=== PATIENT | male | born 2000 | race Two or more races ===

== ENCOUNTER 2022-05-25 17:52 | Emergency (ER) | payer OTHER, SELFPAY ==
[2022-05-25] VITALS (22 sets, daily range): BP systolic 101–154; BP diastolic 55–83; PULSE 99–132; RESP 10–22; TEMP 37; O2SAT 98–100
--- NOTE | 2022-05-25 18:31 | ECG_ITS ---
Measurements Intervals [place] Rate: 118 P: 70 CA: 172 QRS: 59 QRSD: 93 T: 67 QT: 430 QTc: 603 Interpretive Statements SINUS TACHYCARDIA POSSIBLE LEFT ATRIAL ENLARGEMENT INCOMPLETE RIGHT BUNDLE BRANCH BLOCK NONSPECIFIC ST & T-WAVE ABNORMALITY- ANTEROLAT/INF LEADS ABNORMAL ECG NO PREVIOUS ECG AVAILABLE FOR COMPARISON Electronically Signed On 05-25-2022 19:26:17 CDT by Chandler Daigle D.O.
--- NOTE | 2022-05-25 18:34 | ED.GENADULT ---
HPI - General Adult General Chief complaint: Unspecified <MICHAEL Byrd Last Filed: 05/25/22 22:03> Stated complaint: edible ingestion <MICHAEL Byrd Last Filed: 05/25/22 22:03> Time Seen by Provider: 05/25/22 18:32 <Gaviota Tapia PA-C - Last Filed: 05/25/22 22:03> Source: patient <MICHAEL Byrd Last Filed: 05/25/22 22:03> Mode of arrival: EMS <MICHAEL Byrd Last Filed: 05/25/22 22:03> Limitations: no limitations <MICHAEL Byrd Last Filed: 05/25/22 22:03> History of Present Illness HPI narrative: This is a 21 year old male that presents to the ER after taking an edible. Reports he took a delta 8 edible. Since he has been hearing a beeping noise and feels like he is in a time loop. Reports feeling anxious. Denies chest pain or shortness of breath. <MICHAEL Byrd Last Filed: 05/25/22 22:03> Related Data Home medications: Home Medications Medication Instructions Recorded Confirmed finasteride 1 mg tablet 1 mg PO DAILY 05/25/22 05/25/22 <MICHAEL Byrd Last Filed: 05/25/22 22:03> Allergies/adverse reactions: Allergies Allergy/AdvReac Type Severity Reaction Status Date / Time No Known Allergies Allergy Verified 05/25/22 18:01 <Gaviota Tapia PA-C - Last Filed: 05/25/22 22:03> Review of Systems Review of Systems: CONSTITUTIONAL: Denies fever EYES: Denies visual changes CARDIOVASCULAR: Denies chest pain RESPIRATORY: Denies dyspnea. GASTROINTESTINAL: Denies vomiting NEUROLOGIC: Denies numbness, or weakness. PSYCHIATRIC: Reports anxiety <MICHAEL Byrd Last Filed: 05/25/22 22:03> All systems reviewed & are unremarkable except as noted in HPI and below <MICHAEL Byrd Last Filed: 05/25/22 22:03> PMFSH Past Medical History Medical History: Medical History (Updated 05/26/22 @ 00:00 by Sienna Mascorro) No active medical problems <Gaviota Tapia PA-C - Last Filed: 05/25/22 22:03> Social History Social History: Social History (Updated 05/25/22 @ 18:36 by Gaviota Tapia PA-C) Smoking status: Never smoker Alcohol intake: current Substance use: current Substance use type: marijuana <Gaviota Tapia PA-C - Last Filed: 05/25/22 22:03> Exam Narrative: GENERAL: Well-appearing, well-nourished, and in no acute distress. HEAD: Normocephalic, atraumatic. EYES: PERRLA and EOMI. ENT: Nares clear, no rhinorrhea or epistaxis. Mucous membranes moist. Oropharynx without tonsillar hypertrophy exudate or other lesions. Bilateral TMs pearly cabrera non-bulging NECK: Supple. No adenopathy or masses. CHEST: Clear to auscultation. No respiratory distress. No wheezes rales or rhonchi HEART: Regular rate and rhythm. No murmur heard. Normal peripheral pulses. EXTREMITIES: Normal range of motion. No edema. Strength equal in bilateral upper and lower extremities (5/5) SKIN: Warm, dry, no rash. NEURO: No focal deficits. Alert and oriented x3. Cranial nerves II through XII grossly intact PSYCH: Normal mood and affect <Gaviota Tapai PA-C - Last Filed: 05/25/22 22:03> Course PHYSICIAN ADVISOR/PA Physician Supervision For this patient encounter, I reviewed the PHYSICIAN ADVISOR or PA documentation, treatment plan, and medical decision making. I was available for consultation as needed. <Maria D Coyle MD - Last Filed: 05/30/22 11:28> Vital Signs Vital signs: Vital Signs Temperature 98.6 F 05/25/22 17:56 Pulse Rate 130 H 05/25/22 17:56 Respiratory Rate 18 05/25/22 17:56 Blood Pressure 154/83 H 05/25/22 17:56 Pulse Oximetry 99 05/25/22 17:56 Temperature 98.6 F 05/25/22 17:56 Pulse Rate 99 05/25/22 22:10 Respiratory Rate 16 05/25/22 22:10 Blood Pressure 101/55 L 05/25/22 22:10 Pulse Oximetry 99 05/25/22 22:10 <Gaviota Tapia PA-C - Last Filed: 05/25/22 22:03> Vital Signs Temperature 98.6 F 05/25/22 17:56 Pulse Rat
[2022-05-25] MEDS: LORazepam INJ (*CRX) 2 MG/ML VIAL 0.5 MG IV PUSH (18:54)
[2022-05-25] MEDS: SODIUM CHLORIDE 0.9% IV 1,000 ML 999 ML IV CONT (18:55)
[2022-05-25 21:41] LABS: Barbiturate Screen Urine Negative (Negative); Benzodiazepines Screen Urine Negative (Negative)
[2022-05-25 21:44] LABS: Amphetamine Screen Urine Negative (Negative); Cannabinoid Screen Urine Positive (Negative); Cocaine Screen Urine Negative (Negative); Methadone Screen Urine Negative (Negative); Opiate Screen Urine Negative (Negative); Phencyclidine Screen Urine Negative (Negative)
== END 2022-05-25 22:13 | disposition home or self-care (01) ==
PROVIDERS: Physician Assistant; Emergency Provider Emergency Medicine
DX: F12.929 Cannabis use, unspecified with intoxication, unspecified (principal); R00.0 Tachycardia, unspecified; I45.10 Unspecified right bundle-branch block; R94.31 Abnormal electrocardiogram [ECG] [EKG]
CPT/HCPCS: 80307; 93005; 96361; 96374; 99284; J2060; J7030